=== PATIENT | female | born 1995 | race Caucasian/White ===

== ENCOUNTER 2017-08-18 14:15 | Day surgery (SDC) | payer BC, OTHER ==
[~2017-08-18 14:15] MED LIST: Buffered Lidocaine 0.9% SYRIN* 5 ML/SYR SYRINGE INTRADERM ONE; Famotidine IV* 10 MG/ML 2 ML (20 mg) IV ONE
[2017-08-18] MEDS ORDERED: Famotidine IV* 10 MG/ML 2 ML (20 mg) ONE (14:35)
[2017-08-18] MEDS ORDERED: ceFAZolin 2 GM (*##) 2 GM/100 ML BAG USE CEFA2SOL IVPB ONE (15:47)
[2017-08-18] MEDS ORDERED: Bupivacaine 0.25% SDV* 30 ML ONE (16:12)
[2017-08-18] MEDS ORDERED: fentaNYL* 50 MCG/ML 2 ML VIAL (100 MCG VIAL) ONE (16:42)
[2017-08-18] MEDS ORDERED: Midazolam* 1 MG/ML 2 ML VIAL (2 MG) ONE (16:42)
[2017-08-18] MEDS ORDERED: Dexamethasone IV* 4 MG/ML 1 ML (4 MG) ONE (16:59)
[2017-08-18] MEDS ORDERED: Ondansetron INJ* 2 MG/ML VIAL ONE (16:59)
[2017-08-18] MEDS ORDERED: Lidocaine 2% PF * 5 ML VIAL ONE (16:59)
[2017-08-18] MEDS ORDERED: Propofol* 10 MG/ML 20 ML BTL IV PUSH ONE ×2 (16:59→17:28)
[2017-08-18] MEDS ORDERED: Ketorolac INJ* 30 MG/ML 1 ML VIAL ONE (16:59)
[2017-08-18] MEDS ORDERED: DiMENhydriNATE IV* 50 MG/ML VIAL ONE (16:59)
[2017-08-18] MEDS ORDERED: Acetaminophen TAB* 325 MG PO PRN (18:00)
[2017-08-18] MEDS ORDERED: DiMENhydriNATE IV* 50 MG/ML VIAL IV PUSH PRN (18:00)
[2017-08-18] MEDS ORDERED: Naloxone* 0.4 MG/ML 1 ML VIAL IV PRN (18:00)
[2017-08-18] MEDS ORDERED: oxyCODONE TAB* 5 MG TAB PO PRN (18:00)
[2017-08-18] MEDS ORDERED: Acetaminophen TAB* 325 MG ONE (18:04)
[2017-08-18] MEDS ORDERED: oxyCODONE TAB* 5 MG TAB ONE (18:04)
[2017-08-18 19:13] VITALS: BP 134/84
--- NOTE | 2017-08-18 22:08 | OP ---
DATE OF OPERATION: 08/18/17 - FORMERLY [facility] DATE OF : 89 SURGEON: Ramesh Bell MD ORTHOTIST/PROSTHETIST: DAVION Ivan. An assistant track and field coach was needed for the procedure to aid in positioning of the arm and retraction. ANESTHESIOLOGIST: Dr. Rico. ANESTHESIA: General. PRE-OP DIAGNOSIS: Right displaced fifth metacarpal shaft pathologic fracture through an enchondroma. POST-OP DIAGNOSIS: Right displaced fifth metacarpal shaft pathologic fracture through an enchondroma. OPERATIVE PROCEDURE: Closed reduction and percutaneous pinning of right fifth metacarpal shaft pathologic fracture. INDICATIONS: Bonita was seen in the preoperative holding area. The correct site , side, and procedure were identified. We came back to the operating room where anesthesia was induced and the arm was prepped and draped in the usual fashion. A time-out was performed. The arm was pre-scrubbed and then prepped and draped in the usual fashion. A time-out was performed. DESCRIPTION OF PROCEDURE: I began by bringing in the mini C-arm. The trajectory of the first pin was marked out. The first pin was introduced into the base of the fifth metacarpal proximal phalanx and advanced to the fracture site. A second pin was then introduced into the base of the fifth metacarpal shaft fracture and advanced up to the fracture site. We then closed reduced the fracture, had to redirect the pin a couple of times, so we got the first pin across. The second pin was then advanced up as well. The ulnar site of the pin went into the subchondral bone. The radial side of the pin exited out dorsal and ulnar. Final fluoroscopic imaging showed a good alignment of the fracture. The pins were bent and clipped and dressed with Xeroform, 4x4, sterile Webril, and an ulnar gutter splint was applied. The patient was then awoken up and taken to the recovery room in stable condition. Tourniquet was not used throughout the procedure. Proximally at the end of the procedure I came and gave a digital block with 0.25% Marcaine. [id number]/CPS #: [id number] cc: Andrés Marks MD [facility]OSPITALJoshua
--- NOTE | 2017-08-18 22:19 | RAD ---
CPT II Codes: 6045F Indication: Fifth proximal phalanx fracture, traumatic Fluoroscopic services provided for referring physician. 1 minute and 9 seconds of fluoroscopy time was used. 76 spot images demonstrates internal fixation of a fracture of the proximal phalanx of the fifth digit. IMPRESSION: Fluoroscopic services provided for referring physician for internal fixation proximal phalanx fracture fifth digit.
== END 2017-08-18 18:55 | disposition home or self-care (01) ==
LOC: OR 14:15
PROVIDERS: ATTEND Orthopaedic Surgery Hand Surgery
DX: S62.616A Displaced fracture of proximal phalanx of right little finger, initial encounter for closed fracture (principal); D16.11 Benign neoplasm of short bones of right upper limb; W21.05XA Struck by basketball, initial encounter; Y93.67 Activity, basketball; Y92.310 Basketball court as the place of occurrence of the external cause
CPT/HCPCS: 76000; 81025; A9270-GY; C1776; J1100; J1240; J1885; J2250; J2405; J2704; J3010